=== PATIENT | male | born 1990 | race Two or more races ===

== ENCOUNTER 2018-07-21 08:32 | Emergency (ER) | payer OTHER ==
[2018-07-21] MEDS ORDERED: DIPH/PERTUSS(ACELL)/TETANUS VAC/PF 0.5 ML SYR (>=10YO) IM ONE (09:21)
--- NOTE | 2018-07-21 09:28 | ER Document Report ---
ED Animal Bite - General Chief Complaint: Dog Bite Stated Complaint: DOG BITE/LEFT LEG Time Seen by Provider: 07/21/18 08:57 Mode of Arrival: Ambulatory Information source: Patient Notes: 27-year-old male presented to ED for complaint of dog bite on Friday. He states the dog bite was reported to animal control they told him they would get back with him on whether the dog's shots were all up-to-date. He was doing a delivery when the dog bit him. The dog bite does not show any signs or symptoms of infection or inflammation. There is mild redness to the site the site is scabbed over there is no drainage. There is no cellulitis around the site. Patient was concerned that it was a little uncomfortable and he wanted to get started on antibiotics. He states he had not heard back from the dog control and he wanted to know whether he should start rabies shots. Discussed rabies shots with the patient and what it entailed he stated he would rather wait and go by the animal control and ensure that he really needed the rabies shots. - HPI Location of injury: LLE Severity of injury: Bitten Onset: Other - Friday Quality of pain: Achy Pain Level: 2 Severity: Moderate Context of attack: "Unprovoked" attack, Approached animal Type of animal: Dog Appearance of animal: Appeared well Animal's immunizations: Unknown Animal control notified: Yes - Related Data Allergies/Adverse Reactions: No Known Allergies Allergy (Verified 07/21/18 08:39) Past Medical History - General Information source: Patient - Social History Smoking Status: Current Every Day Smoker Cigarette use (# per day): Yes - Half pack a day Chew tobacco use (# tins/day): No Smoking Education Provided: Yes - 4 minutes Frequency of alcohol use: Occasional Drug Abuse: Marijuana Lives with: Spouse/Significant other Family History: Reviewed & Not Pertinent Patient has suicidal ideation: No Patient has homicidal ideation: No - Past Medical History Cardiac Medical History: Reports: None Pulmonary Medical History: Reports: None EENT Medical History: Reports: None Neurological Medical History: Reports: None Endocrine Medical History: Reports: None Renal/ Medical History: Reports: None Malignancy Medical History: Reports None GI Medical History: Reports: None Musculoskeletal Medical History: Reports None Skin Medical History: Reports None Psychiatric Medical History: Reports: None Traumatic Medical History: Reports: None Infectious Medical History: Reports: None Surgical Hx: Negative Past Surgical History: Reports: None - Immunizations Immunizations up to date: Yes Hx Diphtheria, Pertussis, Tetanus Vaccination: Yes Review of Systems - Review of Systems Constitutional: No symptoms reported EENT: No symptoms reported Cardiovascular: No symptoms reported Respiratory: No symptoms reported Gastrointestinal: No symptoms reported Genitourinary: No symptoms reported Male Genitourinary: No symptoms reported Musculoskeletal: No symptoms reported Skin: No symptoms reported Hematologic/Lymphatic: No symptoms reported Neurological/Psychological: No symptoms reported -: Yes All other systems reviewed and negative Physical Exam - Vital signs Vitals: Temp Pulse Resp BP Pulse Ox 97.8 F 71 14 133/83 H 98 07/21/18 08:48 07/21/18 08:48 07/21/18 08:48 07/21/18 08:48 07/21/18 08:48 Interpretation: Normal - General General appearance: Appears well, Alert - HEENT Head: Normocephalic, Atraumatic Eyes: Normal Pupils: PERRL - Respiratory Respiratory status: No respiratory distress Chest status: Nontender Breath sounds: Normal Chest palpation: Normal - Cardiovascular Rhythm: Regular Heart sounds: Normal auscultation Murmur: No - Abdominal Inspection: Normal Distension: No distension Bowel sounds: Normal Tenderness: Nontender Organomegaly: No organomegaly - Back Back: Normal, Nontender - Extremities General upper extremity: Normal inspection, Nontender, Normal color, Normal ROM , Normal temperature General lower extremity: Normal color, Normal ROM, Normal temperature, Normal weight bearing. No: Jose's sign Knee: Tender, Ecchymosis, Laceration - Healing dog bites to the posterior left knee, Pain with ROM, Patellar tendon intact, Popliteal fossa tender, Other - Dog bite left posterior knee scabbed over no redness no signs or symptoms of infection. No: Abrasion, Deformity, Dislocation, Drawer's test instability, Instability, Joint effusion, Laxity with valgus stress, Laxity with varus stress , Tender joint line, Unable to bear weight - Neurological Neuro grossly intact: Yes Cognition: Normal Orientation: AAOx4 [place]vid[place] Coma Scale Eye Opening: Spontaneous [place] Coma Scale Verbal: Oriented [place] Coma Scale Motor: Obeys Commands [place] Coma Scale Total: 15 Speech: Normal Motor strength normal: LUE, RUE, LLE, RLE Sensory: Normal - Psychological Associated symptoms: Normal affect, Normal mood - Skin Skin Temperature: Warm Skin Moisture: Dry Skin Color: Normal Course - Vital Signs Vital signs: Temp Pulse Resp BP Pulse Ox 97.4 F 72 14 132/88 H 98 07/21/18 09:54 07/21/18 09:54 07/21/18 09:54 07/21/18 09:54 07/21/18 09:54 Discharge - Discharge Clinical Impression: dog bite friday behind left knee Condition: Stable Disposition: HOME, SELF-CARE Instructions: Family Physicians / Practices Additional Instructions: Animal Bites Animal bites are often heavily contaminated with bacteria. In spite of thorough cleansing and proper treatment, these wounds frequently become infected. Bite wounds of the hands are especially prone to complications. Bites are dressed, if possible. Large wounds may require suturing after internal cleansing. Because of infection risk, some large wounds must remain unstitched. Your doctor is trained to advise you on the best treatment for your bite. Call the doctor at once if the wound becomes red, swollen, warm, increasingly painful, or if it begins to drain. Danger signs also include red streaks up the involved extremity, swollen glands in the groin or under the arm , or fever and chills. The risk of rabies from domestic animals is very low. Bats, sick animals, and wild animals may expose you to rabies. The physician, or the health department, will inform you if you will need to receive the rabies vaccine. SOAP CLEANSING: Gently wash the wound daily using a mild soap (like Ivory, Phisoderm, Neutrogena). Use warm water, rubbing gently until all debris, ooze, and crusting have been washed from the wound. Allow to dry briefly (about 10 minutes) after cleaning. Repeat this cleansing at least three times a day for the first two days and then once or twice a day. ANTIBIOTIC OINTMENT PROTECTION: Your wounds are such that dressing them is not practical or optional. After cleansing, you should apply a thin coating of antibiotic ointment ( Bacitracin, not Neosporin) to the wounds at least three times daily. This lessens infection risk, and may decrease the amount of scarring. Use a q-tip or dull butter knife, not your finger, to apply this ointment. Any debris or ooze which builds up in the ointment should be gently rubbed off with a sterile gauze pad. Harder crusting may need to be gently scrubbed off with a clean wash cloth with soap and warm water, perhaps applying a warm, wet wash cloth to the wound for ten minutes first. Development of redness, severe itching, or blistering may mean allergy to the ointment. See the doctor. TETANUS IMMUNIZATION GIVEN: You have been given an immunization against tetanus. Please record this in your records. In general, a booster is needed only once every 10 years. The tetanus shot protects against tetanus or "lockjaw," which is a complication of certain wound infections (the tetanus shot cannot protect against the actual infection). The immunization site may become warm and red due to local reaction. If this occurs, apply warm compresses and take aspirin or ibuprofen to reduce inflammation and discomfort. Return for evaluation if the reaction becomes severe. Augmentin Augmentin is a mixture of amoxicillin and clavulanate. Amoxicillin is a member of the penicillin family. It covers the germs likely to cause ear, bronchial, and urinary infections better than plain penicillin. The addition of clavulanate allows it to cover staph infections of the skin, as well as resistant cases of ear and sinus infections. Your physician has chosen Augmentin for you because of the special nature of your situation. Augmentin is best taken with meals. Nausea after taking the medication is rare, but can occur. Diarrhea can occur, particularly in small children. Vaginal yeast infections, and oral thrush in infants are also common. Contact your physician if these problems occur. Allergy to penicillins is common. If you have had an allergic reaction to any drug of the penicillin family, you should never take any other penicillin. Notify your doctor at once if you develop hives, shortness of breath, swelling, or faintness. Ibuprofen Ibuprofen is an excellent, safe drug for pain control. In addition, it has potent antiinflammatory effects which are beneficial, especially in the treatment of injuries, arthritis, or tendonitis. It's best to take ibuprofen with food. Persons with ulcer disease or allergy to aspirin should notify their physician of this before taking ibuprofen. Take the medication exactly as prescribed. Don't take additional doses unless instructed to do so by your doctor. If you develop wheezing, shortness of breath, hives, faintness, stomach pain, vomiting, or dark black stools, return for re-evaluation at once. FOLLOW-UP CARE: If you have been referred to a physician for follow-up care, call the physician s office for an appointment as you were instructed or within the next two days. If you experience worsening or a significant change in your symptoms, notify the physician immediately or return to the Emergency Department at any time for re-evaluation. Prescriptions: Amox Tr/Potassium Clavulanate [Augmentin 875-125 Tablet] 1 tab PO BID 10 Days tablet Forms: Elevated Blood Pressure, Smoking Cessation Education, Return to Work
[2018-07-21 09:56] VITALS: BP 132/88
== END 2018-07-21 10:02 | disposition home or self-care (01) ==
LOC: ER 08:32
DX: S81.852A Open bite, left lower leg, initial encounter (principal); W54.0XXA Bitten by dog, initial encounter; Y99.0 Civilian activity done for income or pay; F17.210 Nicotine dependence, cigarettes, uncomplicated; Z23 Encounter for immunization
CPT/HCPCS: 90471; 90715; 99283; 99406

== ENCOUNTER 2018-11-08 15:00 | Emergency (ER) | payer OTHER ==
--- NOTE | 2018-11-08 15:15 | ER Document Report ---
ED Medical Screen (RME) - General Chief Complaint: Testicular Swelling Stated Complaint: TESTICLE PAIN AND SWELLING TRAVEL OUTSIDE OF THE [place] IN LAST 30 DAYS: No - HPI Notes: 11/08/18 15:13 She is a 28-year-old male accompanied by [facility] who presents emergency department complaining of a very swollen left testicle/scrotum that started 2 days ago. Patient states that he has never had this before. He does have associated pain. He is still urinating normally and having normal bowel movements. He has not had any urethral discharge. Denies drug allergies. Denies FRANKLIN, fever, neck pain, URI, CP, SOB, Abd pain, or rash. I have treated and performed a rapid initial assessment of this patient. A comprehensive ED assessment and evaluation of the patient, analysis of test results and completion of medical decision making process will be conducted by additional ED providers. PHYSICAL EXAMINATION: GENERAL: Well-appearing, well-nourished and in no acute distress. A&Ox4. Answers questions appropriately. : very swollen left scrotum/testicle- firm to palp, cannot make out appropriate landmarks with palp at this time as he is in a jump suit and cuffed. No test. pain/swelling on the right. No obvious hernia or adenopathy. PSYCH: Normal mood, normal affect. - Related Data Allergies/Adverse Reactions: No Known Allergies Allergy (Verified 07/21/18 08:39) Past Medical History Renal/ Medical History: Denies: Hx Peritoneal Dialysis Musculoskeltal Medical History: Denies Hx Arthritis - Immunizations Immunizations up to date: Yes Hx Diphtheria, Pertussis, Tetanus Vaccination: Yes Physical Exam - Vital signs Vitals: Temp Pulse Resp BP Pulse Ox 97.6 F 98 16 136/90 H 95 11/08/18 15:09 11/08/18 15:09 11/08/18 15:09 11/08/18 15:09 11/08/18 15:09 Course - Vital Signs Vital signs: Temp Pulse Resp BP Pulse Ox 97.6 F 98 16 136/90 H 95 11/08/18 15:09 11/08/18 15:09 11/08/18 15:09 11/08/18 15:09 11/08/18 15:09
[2018-11-08] MEDS ORDERED: KETOROLAC TROMETHAMINE 60 MG/2 ML SDV IM ONE (15:30)
[2018-11-08 16:20] LABS: APPEARANCE,URINE CLEAR; BILIRUBIN,URINE NEGATIVE (NEGATIVE); COLOR,URINE STRAW; GLUCOSE, URINE NEGATIVE (NEGATIVE); KETONES,URINE NEGATIVE (NEGATIVE); LEUKOCYTE ESTERASE,URINE NEGATIVE (NEGATIVE); NITRITE,URINE NEGATIVE (NEGATIVE); PROTEIN,URINE NEGATIVE (NEGATIVE); UROBILINOGEN,URINE NEGATIVE mg/dL (<2.0)
--- NOTE | 2018-11-08 16:20 | RADIOLOGY REPORT (SQ) ---
EXAM DESCRIPTION: U/S SCROTUM W/DOPPLER COMPLETED DATE/TIME: 11/08/2018 3:57 pm REASON FOR STUDY: very significant left scrotal/testicular swelling COMPARISON: None. TECHNIQUE: Static and realtime olivares scale imaging of the scrotum and testes. Selected color Doppler and spectral images recorded to document blood flow. LIMITATIONS: None. FINDINGS: RIGHT: TESTICLE: Microlithiasis. Normal blood flow. No mass. EPIDIDYMIS: Normal. HYDROCELE OR VARICOCELE: No. HERNIA OR EXTRA-TESTICULAR MASS: No. OTHER: No other significant finding. LEFT: TESTICLE: Enlarged and hyperemic compared to the right. EPIDIDYMIS: Enlarged and hyperemic compared to the right. HYDROCELE OR VARICOCELE: Small hydrocele. HERNIA OR EXTRA-TESTICULAR MASS: No. OTHER: No other significant finding. IMPRESSION: 1. Left epididymo-orchitis. 2. Right testicular microlithiasis. COMMENT: Urology follow-up is recommended. TECHNICAL DOCUMENTATION: JOB ID: [id number] [employer]- All Rights Reserved Reading location - IP/workstation name: [email or web address]
[2018-11-08 17:49] LABS: CHLAM PCR NOT DETECTED (NOT DETECT); GON PCR NOT DETECTED (NOT DETECT)
[2018-11-08] MEDS ORDERED: LIDOCAINE 1% INJ-PF (10 MG/ML) 30 ML SDV ONE (18:29)
[2018-11-08] MEDS ORDERED: CEFTRIAXONE INJ 500 MG VIAL ONE (18:29)
[2018-11-08 19:23] VITALS: BP 112/72
--- NOTE | 2018-11-30 14:23 | ER Document Report ---
ED GI/ - General Chief Complaint: Testicular Swelling Stated Complaint: TESTICLE PAIN AND SWELLING Time Seen by Provider: 11/08/18 15:15 Mode of Arrival: Ambulatory Information source: Patient Notes: Patient is a 20-year-old male who was brought into emergency room by the senior care with complaint of left testicular swelling patient states that it started swelling approximately 2 days ago and also has of a baseball. Complains of pain and discomfort denies any dysuria. Patient states she is sexually active and only with females. Last sexual involvement was approximately a month ago. Patient denies any fever nausea or vomiting but states the pain and discomfort is getting more difficult and hard to bear. It is difficult to walk because of the size. He denies any history of this in the past. Also denies any past medical problems. TRAVEL OUTSIDE OF THE [place] IN LAST 30 DAYS: No - HPI Patient complains to provider of: Groin pain, Testicular pain Onset: Other - 2 days ago Timing/Duration: Gradual Quality of pain: Fullness, Throbbing Severity at maximum: Severe Severity in ED: Severe Pain Level: 3 Context: denies: Lifting, Recent trauma Sexual history: Active, Unprotected intercourse. denies: New partner, Multiple partners, Rectal penetration, STD exposure Associated symptoms: denies: Penile discharge Exacerbated by: Walking Relieved by: Denies Similar symptoms previously: No Recently seen / treated by doctor: No - Related Data Allergies/Adverse Reactions: No Known Allergies Allergy (Verified 07/21/18 08:39) Past Medical History - General Information source: Patient - Social History Smoking Status: Current Every Day Smoker Cigarette use (# per day): Yes - Half-pack a day Chew tobacco use (# tins/day): No Smoking Education Provided: Yes Frequency of alcohol use: Occasional Drug Abuse: None Lives with: Family Family History: Reviewed & Not Pertinent Patient has suicidal ideation: No Patient has homicidal ideation: No Renal/ Medical History: Denies: Hx Peritoneal Dialysis Musculoskeletal Medical History: Denies Hx Arthritis - Immunizations Immunizations up to date: Yes Hx Diphtheria, Pertussis, Tetanus Vaccination: Yes Review of Systems - Review of Systems Constitutional: No symptoms reported EENT: No symptoms reported Cardiovascular: No symptoms reported Respiratory: No symptoms reported Gastrointestinal: No symptoms reported Genitourinary: No symptoms reported Male Genitourinary: See HPI, Testicular pain Musculoskeletal: No symptoms reported Skin: No symptoms reported Hematologic/Lymphatic: No symptoms reported Neurological/Psychological: No symptoms reported -: Yes All other systems reviewed and negative Physical Exam - Vital signs Vitals: Temp Pulse Resp BP Pulse Ox 97.6 F 98 16 136/90 H 95 11/08/18 15:09 11/08/18 15:09 11/08/18 15:09 11/08/18 15:09 11/08/18 15:09 Interpretation: Hypertensive - Notes Notes: PHYSICAL EXAMINATION: GENERAL: Well-appearing, well-nourished and in no acute distress. HEAD: Atraumatic, normocephalic. EYES: Pupils equal round and reactive to light, extraocular movements intact, sclera anicteric, conjunctiva are normal. ENT: Nares patent, oropharynx clear without exudates. Moist mucous membranes. NECK: Normal range of motion, supple without lymphadenopathy LUNGS: Breath sounds clear to auscultation bilaterally and equal. No wheezes rales or rhonchi. HEART: Regular rate and rhythm without murmurs ABDOMEN: Soft, nontender, nondistended abdomen. No guarding, no rebound. No masses appreciated. Examination of patient's area of concern is his groin and testicular area. Examination shows the patient's left testicle is approximately 20 cm long by approximately 5 cm wide tender to palpation. Non-spongy very firm, nontransparent to illumination. Musculoskeletal: Normal range of motion, no pitting or edema. No cyanosis. NEUROLOGICAL: Normal speech, normal gait. Normal sensory, motor exams PSYCH: Normal mood, normal affect. SKIN: Warm, Dry, normal turgor, no rashes or lesions noted. Course - Re-evaluation Re-evalutation: 11/30/18 14:25 After findings were received discussed the case with Dr. Hastings decided to treat with a shot of Rocephin and Levaquin outpatient. - Vital Signs Vital signs: Temp Pulse Resp BP Pulse Ox 98.5 F 88 16 112/72 100 11/08/18 19:22 11/08/18 19:22 11/08/18 19:22 11/08/18 19:22 11/08/18 19:22 Discharge - Discharge Clinical Impression: Orchitis and epididymitis Condition: Good Disposition: HOME, SELF-CARE Instructions: Anti-Inflammatory Medication ([facility]), Epididymitis ([facility]) Additional Instructions: Use ice packs as directed to 3 times a day possible when incarcerated. No sexual activity until swelling is completely normal. Take all of the antibiotics as prescribed. Anti-inflammatories such as ibuprofen 3 times a day 800 mg. Return to ER if you have any concerns or problems. Forms: Elevated Blood Pressure, Smoking Cessation Education
== END 2018-11-08 19:25 | disposition home or self-care (01) ==
LOC: ER 15:00
DX: N45.3 Epididymo-orchitis (principal); F17.210 Nicotine dependence, cigarettes, uncomplicated
CPT/HCPCS: 99284; 96372; 87086; 81001; 87491; 87591; 76870; 93976; J1885